=== PATIENT | female | born 1980 | race African-American/Black ===

== ENCOUNTER 2016-06-29 12:29 | Emergency (ER) | payer OTHER ==
[~2016-06-29] VITALS: Ht 175.3 cm; Wt 108.0 kg
[2016-06-29 12:36] VITALS: BP 145/98
[2016-06-29] MEDS ORDERED: PROTONIX40 M3 PO (12:54)
[2016-06-29] MEDS ORDERED: ESTRADIOL2 M1 PO (12:54)
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
[2016-06-29] MEDS ORDERED: IBUPROFEN800 M1 PO (13:27)
--- NOTE | 2016-06-29 14:03 | RADIOLOGY REPORT ---
EXAMINATION: XR THORACOLUMBAR SPINE XR ELBOW, LEFT CLINICAL INFORMATION: 36-year-old female presented with left elbow and thoracic pain following injury. COMPARISON: None TECHNIQUE: 2 views of the thoracolumbar spine were obtained. 4 views of the left elbow were obtained. FINDINGS: THORACOLUMBAR SPINE: There is no fracture or bone destruction seen and the vertebral alignment is normal. There is no disc space narrowing. There is no abnormality of the paraspinal soft tissues. Mild nonspecific thoracolumbar levoscoliosis is noted which could be positional. Incidental note is made of postsurgical changes of prior cholecystectomy. LEFT ELBOW: The bony alignment is intact. The cortices are intact. The articular margins, joint space appear well-maintained. The soft tissues are unremarkable. Minimal enthesopathy is noted at the insertional site of the triceps tendon to the olecranon. IMPRESSION: 1. No radiographic evidence of any acute fracture, subluxation or paraspinal hematoma is identified within the thoracolumbar spine. 2. No radiographic evidence of any acute fracture dislocation at the left elbow. 3. Minimal enthesopathy at the insertional site of the triceps tendon to the olecranon process of the ulna.
== END 2016-06-29 14:45 ==
LOC: ERH 12:29
DX: S56.912A Strain of unspecified muscles, fascia and tendons at forearm level, left arm, initial encounter (principal); S39.012A Strain of muscle, fascia and tendon of lower back, initial encounter; Y04.0XXA Assault by unarmed brawl or fight, initial encounter; Y93.9 Activity, unspecified; Y92.9 Unspecified place or not applicable
CPT/HCPCS: 72080; 73080-LT